=== PATIENT | male | born 1990 | race Caucasian/White ===

== ENCOUNTER 2022-10-02 06:58 | Emergency (ER) | payer OTHER ==
[2022-10-02] MEDS ORDERED: Ketorolac Tromethamine 30 MG/ML VIAL ONE ×2 (07:20→07:24)
[2022-10-02] MEDS ORDERED: Acetaminophen 500 MG TAB ONE (07:20)
== END 2022-10-02 08:44 | disposition home or self-care (01) ==
LOC: ERS 06:58
DX: M54.9 Dorsalgia, unspecified (principal); I10 Essential (primary) hypertension; Z79.899 Other long term (current) drug therapy
CPT/HCPCS: 96372; 99282; J1885

== ENCOUNTER 2024-05-18 12:08 | Emergency (ER) | payer OTHER ==
[2024-05-18] MEDS ORDERED: predniSONE 50 MG TAB PO SCH (13:45)
[2024-05-18] MEDS ORDERED: Colchicine 0.6 MG TAB PO SCH (13:45)
[2024-05-18] MEDS ORDERED: traMADol HCl 50 MG TAB ONE (14:29)
[2024-05-18] MEDS ORDERED: predniSONE 20 MG TAB ONE (14:29)
[2024-05-18] MEDS ORDERED: Ketorolac Tromethamine 30 MG (1 mL) VIAL ONE (14:29)
[2024-05-18 14:49] LABS: #Basophils 0.05 10x3/uL (0.0-0.2); %Basophils 0.3 % (0.0-1.0); %Eosinophils 0.5 % (0.0-10.0); %Lymphocytes 11.1 % (21.0-51.0); %Monocytes 4.2 % (0.0-10.0); %Neutrophils 83.6 % (42.0-75.0); Hemoglobin 14.1 g/dL (14.0-18.0); Mean Corpuscular HGB CONC 34.4 g/dL (32.0-36.0); Mean Corpuscular Hemoglobin 29.2 pg (27.0-31.0); Mean Corpuscular Volume 84.9 fL (78.0-98.0); Mean Platelet Volume 9.2 fL (7.4-10.4); Platelet Count 341 10x3/uL (130-400); RBC Distribution Width 14.2 % (11.5-14.5); Red Blood Cell (RBC) Count 4.83 mill/uL (4.70-6.10)
[2024-05-18 15:16] LABS: ALT (SGPT) 16 U/L (8-55); AST (SGOT) 19 U/L (5-34); Albumin 3.3 g/dL (3.5-5.0); Alkaline Phosphatase 99 U/L (40-110); Anion Gap 20 mmol/L (10-20); BUN (Urea Nitrogen) 30 mg/dL (8.9-20.6); Bilirubin, Total 1.3 mg/dL (0.2-1.2); Calc. Creatinine Clearance 0 mL/min (70-130); Calcium 10.3 mg/dL (7.8-10.44); Carbon Dioxide 18 mmol/L (22-29); Chloride 98 mmol/L (98-107); Estimated GFR 43; Globulin 6.3 g/dL (2.4-3.5); Glucose 193 mg/dL (70-105); Potassium 4.5 mmol/L (3.5-5.1); Protein, Total 9.6 g/dL (6.0-8.3); Sodium 131 mmol/L (136-145); Troponin I Less than 0.010 ng/mL (< 0.028); Uric Acid 13.4 mg/dL (3.5-7.2)
[2024-05-18] MEDS ORDERED: Cephalexin 250 MG CAP ONE (15:41)
[2024-05-18] MEDS ORDERED: LevoFLOXacin 250 MG TAB ONE (15:41)
== END 2024-05-18 16:14 | disposition home or self-care (01) ==
LOC: ERS 12:08
DX: M10.9 Gout, unspecified (principal); L02.91 Cutaneous abscess, unspecified; H16.429 Pannus (corneal), unspecified eye; I10 Essential (primary) hypertension
CPT/HCPCS: 36415; 80053; 83605; 83880; 84145; 84484; 84550; 85025; 87040; 96372; 99283; J1885; J7512